=== PATIENT | female | born 1955 | race Caucasian/White ===

== ENCOUNTER 2019-11-01 18:43 | Emergency (ER) | payer OTHER ==
[~2019-11-01] VITALS: Ht 157.5 cm; Wt 53.5 kg
== END 2019-11-01 22:59 | disposition home or self-care (01) ==
LOC: ER 18:43
DX: R21 Rash and other nonspecific skin eruption (principal); L53.8 Other specified erythematous conditions; T78.49XA Other allergy, initial encounter; X58.XXXA Exposure to other specified factors, initial encounter